=== PATIENT | female | born 2000 | race Caucasian/White ===

== ENCOUNTER 2018-01-06 16:52 | Emergency (ER) | payer BC ==
[~2018-01-06] VITALS: Ht 162.6 cm; Wt 65.9 kg
[2018-01-06 16:59] VITALS: BP 121/72; TEMP 97.3
[2018-01-06] MEDS ORDERED: CEPHALEXIN500 M1 PO (18:30)
[2018-01-06] MEDS ORDERED: CLEOCIN HCL300 MG PO (18:30)
[2018-01-06 18:43] VITALS: PULSE 98
== END 2018-01-06 19:01 | disposition home or self-care (01) ==
LOC: COL.ER 16:52
DX: L03.032 Cellulitis of left toe (principal)

== ENCOUNTER 2018-11-05 20:18 | Emergency (ER) | payer BC ==
[~2018-11-05] VITALS: Ht 162.6 cm; Wt 68.2 kg
[~2018-11-05 20:18] MED LIST: CEPHALEXIN500 M1 PO; CLEOCIN HCL300 MG PO
[2018-11-05 20:38] VITALS: BP 130/76; TEMP 103.1
[2018-11-05 21:03] LABS: STREP SCREEN NEGATIVE
[2018-11-05 22:53] LABS: HEMATOCRIT 38.8 % (35.0-45.0); HEMOGLOBIN 13.2 g/dl (12.0-15.0); MEAN CELL VOLUME 89 fl (80.0-95.0); MEAN CORPUSCULAR HEMOGLOBIN 30 pg (26.0-32.0); MEAN CORPUSCULAR HGB CONC 34 g/dl (33.0-37.0); MEAN PLATELET VOLUME 9.2 fl (7.4-10.4); PLATELET COUNT 251 K/mm3 (130-400); RED BLOOD COUNT 4.35 M/mm3 (4.10-5.30); REDCELL DISTRIBUTION WIDTH-CV 12.7 % (11.5-14.5)
[2018-11-05 23:03] LABS: ALBUMIN 3.8 gm/dL (3.5-5.0); BILIRUBIN,TOTAL 0.3 mg/dL (0.0-1.0); CALCIUM 8.6 mg/dL (8.4-10.2); CREATININE, serum 0.67 (0.52-1.25); POTASSIUM 3.7 mmol/L (3.4-5.0); TOTAL PROTEIN 6.7 gm/dL (6.4-8.2)
[2018-11-05 23:09] LABS: LYMPHOCYTE 12 % (20.0-51.0); NEUTROPHILS 79 % (42.0-75.2)
[2018-11-05 23:10] LABS: PLATELET ESTIMATE NORMAL (NORMAL)
[2018-11-05] MEDS ORDERED: ZOFRAN 4MG T4 MG/TAB PO (23:15)
[2018-11-05 23:47] LABS: MUCOUS Present /lpf; PH 5 (5-8); URINE APPEARANCE Hazy; URINE BACTERIA Rare /hpf; URINE BILIRUBIN Negative (NEGATIVE); URINE BLOOD 3+ (NEGATIVE); URINE COLOR Yellow; URINE GLUCOSE Negative (NEGATIVE); URINE KETONE Trace (NEGATIVE); URINE LEUKOCYTE ESTERASE Negative (NEGATIVE); URINE NITRATE Negative (NEGATIVE); URINE PROTEIN(semi-quant) Negative (NEGATIVE)
[2018-11-05 23:55] LABS: COLLECTION METHOD CLEAN CATCH
[2018-11-06 01:15] VITALS: PULSE 88
== END 2018-11-06 01:15 | disposition home or self-care (01) ==
LOC: COL.ER 20:18
PROVIDERS: Emergency Medicine
DX: R19.7 Diarrhea, unspecified (principal); R11.2 Nausea with vomiting, unspecified
CPT/HCPCS: J1885; J2405; J7030